=== PATIENT | female | born 1985 | race Caucasian/White ===

== ENCOUNTER → 2017-08-05 | Outpatient (CLI) | payer BC | LOC: BMCIMAGING 14:59 | PROVIDERS: ATTEND Podiatrist Foot & Ankle Surgery | DX: S92.422A Displaced fracture of distal phalanx of left great toe, initial encounter for closed fracture (principal) ==

== ENCOUNTER → 2017-08-27 | Outpatient (CLI) | payer BC | LOC: BMCIMAGING 09:49 | PROVIDERS: ATTEND Podiatrist Foot & Ankle Surgery | DX: S92.422D Displaced fracture of distal phalanx of left great toe, subsequent encounter for fracture with routine healing (principal) ==

== ENCOUNTER → 2017-09-19 | Outpatient (CLI) | payer BC | LOC: BMCIMAGING 09:50 | PROVIDERS: ATTEND Podiatrist Foot & Ankle Surgery | DX: S92.422D Displaced fracture of distal phalanx of left great toe, subsequent encounter for fracture with routine healing (principal) ==

== ENCOUNTER 2018-06-13 21:23 | Emergency (ER) | payer BC ==
[2018-06-13] MEDS ORDERED: ONDANSETRON 4 MG/2 ML VIAL IVP ONE (21:45)
[2018-06-13] MEDS ORDERED: NS 1,000 ML IV ONE ×2 (21:45→21:49)
--- NOTE | 2018-06-13 21:45 | EDPHY ---
H & P Stated Complaint: NVD-abd pain-6 weeks Time Seen by Provider: 06/13/18 21:45 HPI/ROS: HPI CHIEF COMPLAINT: Nausea vomiting diarrhea abdominal pain. HISTORY OF PRESENT ILLNESS: 33-year-old female, she is currently 6 weeks , 2nd , she did have morning sickness with her 1st , she presents to the emergency room with nausea vomiting diarrhea she describes her diarrhea as pale brown, nonbloody, also complains of some lower abdominal cramping. No vaginal bleeding, no significant urinary symptoms, had a low- grade temperature of 99 degrees. Denies chest pain or shortness of breath, main complaint nausea and vomiting. She also reports that her daughter at home as nausea vomiting diarrhea as well. Past Medical History: Denies significant medical history Past Surgical History: Denies significant surgical history Social History: Denies daily use drugs alcohol tobacco. Family History: Noncontributory ROS REVIEW OF SYSTEMS: 10 Systems were reviewed and negative with the exception of the elements mentioned in the history of present illness. Exam Constitutional triage nursing summary reviewed, vital signs reviewed, awake/ alert. Eyes normal conjunctivae and sclera, EOMI, PERRLA. HENT normal inspection, atraumatic, moist mucus membranes, no epistaxis, neck supple/ no meningismus, no raccoon eyes. Respiratory clear to auscultation bilaterally, normal breath sounds, no respiratory distress, no wheezing. Cardiovascular rate normal, regular rhythm, no murmur, no edema, distal pulses normal. Gastrointestinal mild tender palpation suprapubic, no peritoneal signs, no rebound, no guarding, normal bowel sounds, no distension, no pulsatile mass. Genitourinary no CVA tenderness. Musculoskeletal no midline vertebral tenderness, full range of motion, no calf swelling, no tenderness of extremities, no meningismus, good pulses, neurovascularly intact. Skin pink, warm, & dry, no rash, skin atraumatic. Neurologic awake, alert and oriented x 3, AAOx3, moves all 4 extremities equally, motor intact, sensory intact, CN II-XII intact, normal cerebellar, normal vision, normal speech. Psychiatric normal mood/affect. Heme/Lymph/Immune no lymphadenopathy. Differential Diagnosis: Differential diagnosis includes but is not limited to and in no particular order: Nausea vomiting diarrhea, GI illness, viral illness , vomiting in , ectopic , appendicitis, Bowel obstruction, appendicitis, gallbladder disease, diverticulitis, colitis, enteritis, perforated viscus, gastritis, GERD, esophagitis, urinary tract infection, pyelonephritis, kidney stones Medical Decision Making: Includes but is not limited to in a particular order IV fluids, 2 L, IV Zofran for nausea, basic labs, urinalysis, ultrasound and re- evaluate. Re-evaluation: Ultrasound OB faxed me by direct Radiology at time 12:13 a.m., shows a single live intrauterine gestation demonstrated small subchorionic hemorrhage probable corpus luteum cyst right ovary moderate amount of free fluid in the pelvis. Estimated gestational age of 6 weeks 3 days. 0406: Patient re-evaluated this time is feeling much better. Abdomen is soft nontender. There is no significant right lower quadrant pain on exam. The patient presented with nausea vomiting and diarrhea and has sick contacts at home. Patient is feeling much better after IV fluids here 2 L, IV Zofran and Tylenol. Labs reviewed mild leukocytosis. No fever here. No evidence of ectopic She does have a small subchorionic hemorrhage I believe she has a viral illness with nausea vomiting diarrhea. Recommend bland diet. Additionally we discussed return precautions return emergency room if develops worsening abdominal pain, fever, vomiting. She is comfortable this plan. I discussed the case with Dr. Arias. Clinically most likely has nausea vomiting diarrhea from a virus, has a 6 week , possibly ruptured right ovarian cyst given the free fluid. We discussed return precautions. She understands return emergency develops worsening abdominal pain, fever, vomiting Close follow up with her OBGYN. Source: Patient - Personal History LMP (Females 10-55): Current Tetanus Diphtheria and Acellular Pertussis (TDAP): Yes - Medical/Surgical History Hx Asthma: No Hx Chronic Respiratory Disease: No Hx Diabetes: No Hx Cardiac Disease: No Hx Renal Disease: No Hx Cirrhosis: No Hx Alcoholism: No Hx HIV/AIDS: No Hx Splenectomy or Spleen Trauma: No Other PMH: , wisdom teeth - Social History Smoking Status: Never smoked Constitutional: Initial Vital Signs Temperature (C) 36.8 C 06/13/18 21:26 Heart Rate 102 H 06/13/18 21:26 Respiratory Rate 16 06/13/18 21:26 Blood Pressure 87/64 L 06/13/18 21:26 O2 Sat (%) 98 06/13/18 21:26 O2 Delivery Mode Room Air Allergies/Adverse Reactions: azithromycin Allergy (Verified 06/13/18 21:26) Penicillins Allergy (Verified 06/13/18 21:26) Home Medications: Medication Instructions Recorded Promethazine HCl 25 mg PO Q6-8PRN PRN #10 tablet 06/14/18 Medical Decision Making - Data Points Laboratory Results: Laboratory Results 06/13/18 21:40 06/13/18 21:40 06/13/18 06/13/18 06/13/18 22:35 21:40 21:40 WBC 14.71 10^3/uL H 10^3/uL (3.80-9.50) RBC 4.90 10^6/uL 10^6/uL (4.18-5.33) Hgb 15.4 g/dL g/dL (12.6-16.3) Hct 45.0 % % (38.0-47.0) MCV 91.8 fL fL (81.5-99.8) MCH 31.4 pg pg (27.9-34.1) MCHC 34.2 g/dL g/dL (32.4-36.7) RDW 12.8 % % (11.5-15.2) Plt Count 260 10^3/uL 10^3/uL (150-400) MPV 10.9 fL fL (8.7-11.7) Neut % (Auto) 86.2 % H % (39.3-74.2) Lymph % (Auto) 8.6 % L % (15.0-45.0) [place] % (Auto) 4.5 % % (4.5-13.0) Eos % (Auto) 0.1 % L % (0.6-7.6) Baso % (Auto) 0.3 % % (0.3-1.7) Nucleat RBC Rel Count 0.0 % % (0.0-0.2) Absolute Neuts (auto) 12.67 10^3/uL H 10^3/uL (1.70-6.50) Absolute Lymphs (auto) 1.26 10^3/uL 10^3/uL (1.00-3.00) Absolute Monos (auto) 0.66 10^3/uL 10^3/uL (0.30-0.80) Absolute Eos (auto) 0.02 10^3/uL L 10^3/uL (0.03-0.40) Absolute Basos (auto) 0.05 10^3/uL 10^3/uL (0.02-0.10) Absolute Nucleated RBC 0.00 10^3/uL 10^3/uL (0-0.01) Immature Gran % 0.3 % % (0.0-1.1) Immature Gran # 0.05 10^3/uL 10^3/uL (0.00-0.10) Sodium 134 mEq/L L mEq/L (135-145) Potassium 4.1 mEq/L mEq/L (3.5-5.2) Chloride 99 mEq/L mEq/L (97-110) Carbon Dioxide 22 mEq/l mEq/l (22-31) Anion Gap 13 mEq/L mEq/L (6-14) BUN 11 mg/dL mg/dL (7-23) Creatinine 0.6 mg/dL mg/dL (0.6-1.0) Estimated GFR > 60 Glucose 104 mg/dL H mg/dL (70-100) Calcium 9.9 mg/dL mg/dL (8.5-10.4) Total Bilirubin 1.0 mg/dL mg/dL (0.1-1.4) Conjugated Bilirubin 0.1 mg/dL mg/dL (0.0-0.5) Unconjugated Bilirubin 0.9 mg/dL mg/dL (0.0-1.1) AST 19 IU/L IU/L (14-46) ALT 17 IU/L IU/L (9-52) Alkaline Phosphatase 55 IU/L IU/L (38-126) Total Protein 7.8 g/dL g/dL (6.3-8.2) Albumin 4.8 g/dL g/dL (3.5-5.0) Lipase 102 IU/L IU/L (23-300) Beta HCG, Quant 20581.00 mIU/mL H mIU/mL (0.00-4.83) Urine Color YELLOW Urine Appearance CLEAR Urine pH 5.0 (5.0-7.5) Ur Specific [place] 1.023 (1.002-1.030) Urine Protein NEGATIVE (NEGATIVE) Urine Ketones 2+ H (NEGATIVE) Urine Blood NEGATIVE (NEGATIVE) Urine Nitrate NEGATIVE (NEGATIVE) Urine Bilirubin NEGATIVE (NEGATIVE) Urine Urobilinogen NEGATIVE EU EU (0.2-1.0) Ur Leukocyte Esterase NEGATIVE (NEGATIVE) Urine Glucose NEGATIVE (NEGATIVE) Medications Given: Discontinued Medications Acetaminophen (Tylenol) 1,000 mg PO EDNOW ONE Stop: 06/14/18 02:15 Last Admin: 06/14/18 02:24 Dose: 1,000 mg Sodium Chloride (Ns) 1,000 mls @ 0 mls/hr IV EDNOW ONE; Wide Open PRN Reason: Protocol Stop: 06/13/18 21:46 Last Admin: 06/13/18 21:48 Dose: 1,000 mls Sodium Chloride (Ns) 1,000 mls @ 0 mls/hr IV ONCE ONE PRN Reason: Wide Open Stop: 06/13/18 21:50 Last Admin: 06/13/18 21:53 Dose: 1,000 mls Ondansetron HCl (Zofran) 4 mg IVP EDNOW ONE Stop: 06/13/18 21:46 Last Admin: 06/13/18 21:48 Dose: 4 mg Ondansetron HCl (Zofran) 4 mg IVP EDNOW ONE Stop: 06/14/18 00:47 Last Admin: 06/14/18 00:47 Dose: 4 mg Departure - Departure Disposition: Home, Routine, Self-Care Clinical Impression: Vomiting Qualifiers: Vomiting type: unspecified Vomiting Intractability: non-intractable Nausea presence: with nausea Qualified Code(s): R11.2 - Nausea with vomiting, unspecified Diarrhea Qualifiers: Diarrhea type: unspecified type Qualified Code(s): R19.7 - Diarrhea, unspecified Qualifiers: Weeks of gestation: less than 8 weeks Qualified Code(s): Z3A.01 - Less than 8 weeks gestation of Condition: Good Instructions: Promethazine (By mouth), (ED), Dehydration (ED) Additional Instructions: 1. [place] diet over the next 24-48 hours no spicy fatty greasy foods. 2. Return to the emergency room if your develp worsening symptoms includes worsening abdominal pain, vomiting, fever, not doing well. 3. rest 4. return if worse. Referrals: NONE *PRIMARY CARE P,. [Primary Care Provider] - As per Instructions Kathe Arias MD [Medical Doctor] - As per Instructions Prescriptions: Promethazine HCl 25 mg PO Q6-8PRN PRN #10 tablet PRN Reason: Nausea/Vomiting, Use 1st
[2018-06-13 21:54] LABS: PLATELET COUNT 260 10^3/uL (150-400)
[2018-06-14] MEDS ORDERED: ONDANSETRON 4 MG/2 ML VIAL ONE (00:45)
[2018-06-14] MEDS ORDERED: ONDANSETRON 4 MG/2 ML VIAL IVP ONE (00:46)
[2018-06-14] MEDS ORDERED: ACETAMINOPHEN 500 MG TAB PO ONE (02:14)
[2018-06-14 04:49] VITALS: BP 104/66
== END 2018-06-14 04:49 | disposition home or self-care (01) ==
DX: R11.2 Nausea with vomiting, unspecified (principal); R19.7 Diarrhea, unspecified; R10.9 Unspecified abdominal pain; Z3A.01 Less than 8 weeks gestation of pregnancy
CPT/HCPCS: 96374; J2405

== ENCOUNTER 2018-06-14 21:36 | Inpatient (IN) | payer BC | END 2018-06-16 13:45 | disposition home or self-care (01) | LOC: FOB 06-15 02:45 ==